=== PATIENT | male | born 1955 | race Caucasian/White ===

== ENCOUNTER 2022-01-07 08:45 | Outpatient (REF) | payer MEDICARE, SELFPAY ==
[2022-01-07 09:40] LABS: MANUAL DIFF FLAG NO
[2022-01-07 10:27] LABS: Basophils Absolute Auto 0.1 X10*3/uL (0.0-0.2); Basophils Percent Auto 0.6 % (0-2); Eosinophils Absolute Auto 0.3 X10*3/uL (0.0-0.4); Hematocrit 41.7 % (42.0-52.0); Hemoglobin 13.7 g/dl (14.0-18.0); Imm Gran Abs Auto 0.02 X10*3/uL (0.00-0.03); Imm Gran Pct Auto 0.2 % (0.0-0.4); Lymphocytes Absolute Auto 2.4 X10*3/uL (1.2-4.9); Lymphocytes Percent Auto 25.6 % (20-40); Mean Corpuscular HGB Conc 32.9 g/dl (31.0-36.0); Mean Corpuscular Hemoglobin 32.4 pg (27.0-33.0); Mean Corpuscular Volume 98.6 fL (80.0-98.0); Mean Platelet Volume 12.5 fL (9.4-12.4); Monocytes Absolute Auto 0.6 X10*3/uL (0.1-1.2); Monocytes Percent Auto 6.3 % (2-11); Neutrophils Absolute Auto 6.1 x10*3/uL (2.0-8.3); Neutrophils Percent Auto 64.3 % (45-73); Platelet Count 190 X10*3/uL (160-400); Red Blood Count 4.23 X10*6/uL (4.60-5.80); Red Cell Distribution Width 14.5 % (11.0-16.0); White Blood Count 9.4 X10*3/uL (4.8-10.8)
[2022-01-07 11:15] LABS: Alanine Aminotransferase 9 U/L (0-40); Albumin Level 3.9 g/dL (3.5-5.0); Alkaline Phosphatase 102 U/L (39-117); Anion Gap 12 (12-20); Aspartate Amino Transferase 15 U/L (5-37); Bilirubin Total 0.3 mg/dL (0.0-1.0); Blood Urea Nitrogen 8 mg/dL (9-16); Calcium 10.2 mg/dL (8.4-10.2); Carbon Dioxide 27 mmol/L (22-29); Chloride 106 mmol/L (96-108); Cholesterol 153 mg/dL; Estimated Glomerular Filt Rate > 60; Free T4 (Free Thyroxine) 0.97 ng/dL (0.71-1.85); Glucose Fasting 102 mg/dL (60-99); HDL Cholesterol 35 mg/dL; LDL Cholesterol Calculated 97 mg/dl; Potassium 4.2 mmol/L (3.3-5.1); Prostate Specific Antigen 0.22 ng/mL (<0.05-4.0); Sodium 141 mmol/L (135-145); Total Protein 7.1 g/dL (6.5-8.0); Triglycerides 109 mg/dL
== END 2022-01-07 08:46 | disposition home or self-care (01) ==
LOC: HO.LAB 08:45
PROVIDERS: PCP Family Medicine; Visit Provider Family Medicine
DX: Z12.5 Encounter for screening for malignant neoplasm of prostate (principal); R00.0 Tachycardia, unspecified; I10 Essential (primary) hypertension; R35.1 Nocturia
CPT/HCPCS: 36415; 80053; 80061; 84153; 84439; 85025

== ENCOUNTER 2022-02-11 13:04 | Inpatient (IN) | payer MEDICARE, MEDICAID, SELFPAY ==
--- NOTE | 2022-02-11 | ECG_ITS ---
Test Reason : SEIZURE Blood Pressure : / mmHG Vent. Rate : 120 BPM Atrial Rate : 120 BPM P-R Int : 142 ms QRS Dur : 070 ms QT Int : 330 ms P-R-T Axes : 078 -22 066 degrees QTc Int : 466 ms Sinus tachycardia Possible Left atrial enlargement Possible Anterior infarct (cited on or before 02-APR-2019) Abnormal ECG When compared with ECG of 02-APR-2019 02:31, Premature supraventricular complexes are no longer Present Left anterior fascicular block is no longer Present Questionable change in initial forces of Anterior leads Referred By: Generic ED Physician Electronically Signed By:Serjio Rogers
--- NOTE | 2022-02-11 | EEG_ITS ---
This is a 16-channel EEG with an EKG lead. The patient is reported awake and drowsy during the tracing. Background EEG rhythm is mostly low to medium amplitude, mixed theta, beta with no obvious asymmetry or paroxysmal tendency. Photic stimulation does not produce any significant abnormality. Hyperventilation is not performed. Cardiac lead does not reveal any significant abnormality other than sinus bradycardia with a rate of about 60 per minute. No sharp wave spikes or paroxysmal tendency noted. IMPRESSION: Generalized slowing with no evidence of seizure disorder. MD THOR Cisneros/LILIA / [id number]
--- NOTE | ~2022-02-11 | CT_ITS ---
EXAMINATION: CT HEAD WITHOUT CONTRAST CLINICAL INFORMATION: Seizure. COMPARISON: CT head dated from 04/17/2018. TECHNIQUE: Contiguous axial imaging was performed from the skull base to vertex without intravenous administration of contrast. This CT examination was performed using dose optimization techniques as appropriate, variously including the following: *Automated exposure control *Adjustment of mA and/or kV according to patient size (this includes techniques or standardized protocols for targeted exams where dose is matched to indication/reason for exam; i.e. extremities or head) *Use of iterative reconstruction technique DLP: 669 mGy-cm FINDINGS: Redemonstration of a large area of encephalomalacia and gliosis in the right frontal lobe, and additional smaller areas of encephalomalacia in the left inferior frontal lobe and left anterior temporal lobe. There is no evidence of acute intracranial hemorrhage or edematous territorial infarction. Scattered hypoattenuation in the periventricular and deep white matter are consistent with severe microangiopathy. Chronic bilateral lacunar infarcts. Proportional prominence of the ventricles and sulcal spaces. No evidence for obstructive hydrocephalus. No abnormal mass effect or midline shift. No extra-axial fluid collections. Partial opacification of the maxillary sinuses, left sphenoidal sinus and several ethmoid air cells. The mastoids and middle ear cavities are clear. Numerous periapical lucencies. Similar thickening and heterogeneity of the bifrontal skull, more notable on the right side (7:131). CT/CT head/brain wo con IMPRESSION: Multifocal areas of encephalomalacia and gliosis, largest in the right frontal lobe, likely sequela of a prior trauma and unchanged since 2018. No acute intracranial hemorrhage or edematous territorial infarction. Background of extensive microangiopathy and generalized cerebral volume loss. Paranasal sinus disease. Numerous periapical lucencies, possibly abscesses. Recommend dental referral.
--- NOTE | ~2022-02-11 | XR_ITS ---
EXAMINATION: XR CHEST CLINICAL INFORMATION: Seizure COMPARISON: Previous x-ray most recent March 2018 TECHNIQUE: Frontal view of the chest was obtained. FINDINGS: The cardiac and mediastinal contours are stable. The lungs are clear. There is no pleural effusion or pneumothorax. There are old right-sided rib fractures. There are degenerative changes of the spine. XR/XR chest 1V IMPRESSION: No evidence for acute disease in the chest.
[2022-02-11 13:15] VITALS: BP 102/67; PULSE 125; RESP 20; O2SAT 92; BMI 16.1
[2022-02-11 13:39] LABS: MANUAL DIFF FLAG NO
[2022-02-11 13:43] LABS: Basophils Absolute Auto 0.1 X10*3/uL (0.0-0.2); Basophils Percent Auto 0.5 % (0-2); Eosinophils Absolute Auto 0.3 X10*3/uL (0.0-0.4); Eosinophils Percent Auto 2.1 % (0-4); Hematocrit 46.4 % (42.0-52.0); Hemoglobin 14.5 g/dl (14.0-18.0); Imm Gran Abs Auto 0.04 X10*3/uL (0.00-0.03); Imm Gran Pct Auto 0.3 % (0.0-0.4); Lymphocytes Absolute Auto 2.8 X10*3/uL (1.2-4.9); Lymphocytes Percent Auto 23.9 % (20-40); Mean Corpuscular HGB Conc 31.3 g/dl (31.0-36.0); Mean Corpuscular Hemoglobin 32.1 pg (27.0-33.0); Mean Corpuscular Volume 102.7 fL (80.0-98.0); Mean Platelet Volume 13.3 fL (9.4-12.4); Monocytes Absolute Auto 0.7 X10*3/uL (0.1-1.2); Neutrophils Percent Auto 67.2 % (45-73); Platelet Count 148 X10*3/uL (160-400); Red Blood Count 4.52 X10*6/uL (4.60-5.80); White Blood Count 11.9 X10*3/uL (4.8-10.8)
[2022-02-11 13:53] LABS: Ethanol < 10 mg/dL
[2022-02-11 13:59] LABS: Blood Urea Nitrogen 11 mg/dL (9-16); Calcium 10.4 mg/dL (8.4-10.2); Creatinine Clr Calc Pharmacy 42.9; Estimated Glomerular Filt Rate 55; Glucose Random 133 mg/dL (60-115)
--- NOTE | 2022-02-11 14:07 | ED.SEIZURE ---
HPI - Seizure General Chief Complaint: Seizure Stated Complaint: SZ, POST ICTAL @ THIS TIME PER EMS Time Seen by Provider: 02/11/22 13:59 Source: EMS Mode of arrival: EMS Limitations: altered mental status History of Present Illness HPI Narrative: 66-year-old male status post seizure at home. Patient is known alcoholic but her roommate has not been drinking for the past year patient has not been seen here since September of 2020. Patient is unable to give any history as he got 5 of Versed by EMS. From unable to get any history from the patient only that EMS state that the patient seized in front of them patient is very unkempt has very poor order Seizure History: Yes Place: Home Related Data Allergies Allergy/AdvReac Type Severity Reaction Status Date / Time No Known Allergies Allergy Unverified 06/06/20 15:22 [No Known Allergies*] Review of Systems Review of Systems: Yes Unobtainable due to mental status PMFSH Social History Social History Advance Directives: No Advance Directives Information Provided: No Physical Exam Vital Signs: Vital Signs: Last Vital Signs Pulse 125 H 02/11/22 13:15 Resp 20 02/11/22 13:15 BP 102/67 02/11/22 13:15 Pulse Ox 92 02/11/22 13:15 BMI result Body Mass Index 16.1 Neurological exam: CN II- XII tested. Patient is somnolent. Patient has no dysphagia or dysarthia, denies good vision in all four vision zhou no nystagmus on exam, good strength to upper and lower extremities with normal reflexes to brachioradialis, wrist, patella and achilles. Negative romberg, good finger to nose and heel to dale. General: Well-appearing well-nourished in no signs of distress HEENT: Normocephalic atraumatic Neck: No signs of JVD, no masses no tenderness or lymphadenopathy Cardiovascular: Regular rate and rhythm Respiratory: Clear to auscultation bilaterally Abdomen: Soft nontender no masses Extremities: Normal pedal pulses no signs of edema Skin: Dry warm no rashes Back: No tenderness full ROM MDM - Seizure MDM Narrative Medical decision making narrative: Concern for seizure give patient over for CT head and ensure the patient had his head and getting history from the patient I will check labs and reassess patient is noted to have low bicarb likely related to the seizure. 1545 Patient is now awake admits to drinking heavily recently and does want help. He likely had a alcohol withdrawal seizure. I will consult the assistant women's tennis coach. 1631 patient is in the room eating EKG leads and eating blanket that he has when asked why he is eating the blanket the 5th at some length for patient is not obviously draw labs on this patient is safe to go home I will start the patient on phenobarbital I did call pharmacy and had a markedly through it I will the patient medicine. Lab Data Result diagrams: 02/11/22 13:31 02/11/22 13:31 Labs: Lab Results 02/11/22 02/11/22 02/11/22 Range/Units 13:31 13:31 13:31 WBC 11.9 H (4.8-10.8) X10*3/uL RBC 4.52 L (4.60-5.80) X10*6/uL Hgb 14.5 (14.0-18.0) g/dl Hct 46.4 (42.0-52.0) % MCV 102.7 H (80.0-98.0) fL MCH 32.1 (27.0-33.0) pg MCHC 31.3 (31.0-36.0) g/dl RDW 14.0 (11.0-16.0) % Plt Count 148 L (160-400) X10*3/uL MPV 13.3 H (9.4-12.4) fL Immature Gran % (Auto) 0.3 (0.0-0.4) % Neut % (Auto) 67.2 (45-73) % Lymph % (Auto) 23.9 (20-40) % [place] % (Auto) 6.0 (2-11) % Eos % (Auto) 2.1 (0-4) % Baso % (Auto) 0.5 (0-2) % Lymph # (Auto) 2.8 (1.2-4.9) X10*3/uL [place] # (Auto) 0.7 (0.1-1.2) X10*3/uL Eos # (Auto) 0.3 (0.0-0.4) X10*3/uL Baso # (Auto) 0.1 (0.0-0.2) X10*3/uL Abs Immat Gran (auto) 0.04 H (0.00-0.03) X10*3/uL Absolute Neuts (auto) 8.0 (2.0-8.3) x10*3/uL Absolute Nucleated RBC 0.000 (0.0-0.012) X10*3/uL Nucleated RBC % (auto) 0.0 (0.0-0.2) /100WBC Sodium 141 (135-145) mmol/L Potassium 4.2 (3.3-5.1) mmol/L Chloride 105 (96-108) mmol/L Carbon Dioxide 8 L* D (22-29) mmol/L Anion Gap 32 H (12-20) BUN 11 (9-16) mg/dL Creatinine 1.31 (0.5-1.4) mg/dL Estim Creat Clear Calc 42.9 Estimated GFR 55 Random Glucose 133 H (60-115) mg/dL Calcium 10.4 H (8.4-10.2) mg/dL Total Bilirubin 0.3 (0.0-1.0) mg/dL Direct Bilirubin < 0.2 (0.0-0.5) mg/dL AST 15 (5-37) U/L ALT 10 (0-40) U/L Alkaline Phosphatase 105 (39-117) U/L Total Protein 7.6 (6.5-8.0) g/dL Albumin 4.1 (3.5-5.0) g/dL Lipase 23 (8-78) U/L Ethyl Alcohol < 10 mg/dL COVID-19 ([facility]) (Negative) COVID-19 Clin Com 02/11/22 Range/Units 15:04 WBC (4.8-10.8) X10*3/uL RBC (4.60-5.80) X10*6/uL Hgb (14.0-18.0) g/dl Hct (42.0-52.0) % MCV (80.0-98.0) fL MCH (27.0-33.0) pg MCHC (31.0-36.0) g/dl RDW (11.0-16.0) % Plt Count (160-400) X10*3/uL MPV (9.4-12.4) fL Immature Gran % (Auto) (0.0-0.4) % Neut % (Auto) (45-73) % Lymph % (Auto) (20-40) % [place] % (Auto) (2-11) % Eos % (Auto) (0-4) % Baso % (Auto) (0-2) % Lymph # (Auto) (1.2-4.9) X10*3/uL [place] # (Auto) (0.1-1.2) X10*3/uL Eos # (Auto) (0.0-0.4) X10*3/uL Baso # (Auto) (0.0-0.2) X10*3/uL Abs Immat Gran (auto) (0.00-0.03) X10*3/uL Absolute Neuts (auto) (2.0-8.3) x10*3/uL Absolute Nucleated RBC (0.0-0.012) X10*3/uL Nucleated RBC % (auto) (0.0-0.2) /100WBC Sodium (135-145) mmol/L Potassium (3.3-5.1) mmol/L Chloride (96-108) mmol/L Carbon Dioxide (22-29) mmol/L Anion Gap (12-20) BUN (9-16) mg/dL Creatinine (0.5-1.4) mg/dL Estim Creat Clear Calc Estimated GFR Random Glucose (60-115) mg/dL Calcium (8.4-10.2) mg/dL Total Bilirubin (0.0-1.0) mg/dL Direct Bilirubin (0.0-0.5) mg/dL AST (5-37) U/L ALT (0-40) U/L Alkaline Phosphatase (39-117) U/L Total Protein (6.5-8.0) g/dL Albumin (3.5-5.0) g/dL Lipase (8-78) U/L Ethyl Alcohol mg/dL COVID-19 ([facility]) Negative (Negative) COVID-19 Clin Com See Note Discharge Plan Discharge Clinical Impression: Alcohol withdrawal, Alcohol withdrawal delirium, Alcohol withdrawal seizure Patient Disposition: Admitted As Inpatient
[2022-02-11 14:10] LABS: Anion Gap 32 (12-20); Carbon Dioxide 8 mmol/L (22-29); Chloride 105 mmol/L (96-108); Potassium 4.2 mmol/L (3.3-5.1); Sodium 141 mmol/L (135-145)
[2022-02-11] MEDS: 0.9 % Sodium Chloride 1,000 ML 999 ML IV (14:20)
[2022-02-11 14:34] LABS: Alanine Aminotransferase 10 U/L (0-40); Albumin Level 4.1 g/dL (3.5-5.0); Alkaline Phosphatase 105 U/L (39-117); Aspartate Amino Transferase 15 U/L (5-37); Bilirubin Direct < 0.2 mg/dL (0.0-0.5); Bilirubin Total 0.3 mg/dL (0.0-1.0); Lipase 23 U/L (8-78); Total Protein 7.6 g/dL (6.5-8.0)
--- NOTE | 2022-02-11 15:11 | PC.NURSE ---
call brother colin @ [phone]
[2022-02-11 15:48] LABS: COVID-19 Test Negative (Negative); IDNOW Serial# 55D5AD1C
--- NOTE | 2022-02-11 16:04 | PC.NURSE ---
patient more awake at this time, but confused and attempting to eat EKG leads. patient provided food and beverage at this time. easily distracted by objects in room, playing with blankets, seizure pads, belt buckle. when asked what patient is doing, patient states : i dont know
[2022-02-11 16:31] VITALS: BP 118/76; PULSE 115; RESP 20; TEMP 37.1; O2SAT 98
--- NOTE | 2022-02-11 16:42 | ED_ITS ---
HPI - Seizure General Chief Complaint: Seizure Stated Complaint: SZ, POST ICTAL @ THIS TIME PER EMS Time Seen by Provider: 02/11/22 13:59 Source: EMS Mode of arrival: EMS Limitations: altered mental status History of Present Illness Seizure History: Yes Place: Home Related Data Allergies Allergy/AdvReac Type Severity Reaction Status Date / Time No Known Allergies Allergy Unverified 06/06/20 15:22 [No Known Allergies*] [facility] Social History Social History Advance Directives: No Advance Directives Information Provided: No Physical Exam Vital Signs: Vital Signs: Last Vital Signs Temp 98.8 F 02/11/22 16:31 Pulse 115 H 02/11/22 16:31 Resp 20 02/11/22 16:31 BP 118/76 02/11/22 16:31 Pulse Ox 98 02/11/22 16:31 BMI result Body Mass Index 16.1 MDM - Seizure MDM Narrative Medical decision making narrative: Patient with seizure and alcohol withdrawal likely but unable to give us any history. Patient did wake up and admits to drinking heavily recently. He then started have very strange behavior eating EKG leads and his blanket he stated that's what blankets are for. I will give the patient phenobarbitol. I spoke with the hospitalist who wanted the patient to recieve phenobarbitol for the low barcarb on arrival which I will give. Lab Data Result diagrams: 02/11/22 13:31 02/11/22 13:31 Labs: Lab Results 02/11/22 02/11/22 02/11/22 Range/Units 13:31 13:31 13:31 WBC 11.9 H (4.8-10.8) X10*3/uL RBC 4.52 L (4.60-5.80) X10*6/uL Hgb 14.5 (14.0-18.0) g/dl Hct 46.4 (42.0-52.0) % MCV 102.7 H (80.0-98.0) fL MCH 32.1 (27.0-33.0) pg MCHC 31.3 (31.0-36.0) g/dl RDW 14.0 (11.0-16.0) % Plt Count 148 L (160-400) X10*3/uL MPV 13.3 H (9.4-12.4) fL Immature Gran % (Auto) 0.3 (0.0-0.4) % Neut % (Auto) 67.2 (45-73) % Lymph % (Auto) 23.9 (20-40) % [place] % (Auto) 6.0 (2-11) % Eos % (Auto) 2.1 (0-4) % Baso % (Auto) 0.5 (0-2) % Lymph # (Auto) 2.8 (1.2-4.9) X10*3/uL [place] # (Auto) 0.7 (0.1-1.2) X10*3/uL Eos # (Auto) 0.3 (0.0-0.4) X10*3/uL Baso # (Auto) 0.1 (0.0-0.2) X10*3/uL Abs Immat Gran (auto) 0.04 H (0.00-0.03) X10*3/uL Absolute Neuts (auto) 8.0 (2.0-8.3) x10*3/uL Absolute Nucleated RBC 0.000 (0.0-0.012) X10*3/uL Nucleated RBC % (auto) 0.0 (0.0-0.2) /100WBC Sodium 141 (135-145) mmol/L Potassium 4.2 (3.3-5.1) mmol/L Chloride 105 (96-108) mmol/L Carbon Dioxide 8 L* D (22-29) mmol/L Anion Gap 32 H (12-20) BUN 11 (9-16) mg/dL Creatinine 1.31 (0.5-1.4) mg/dL Estim Creat Clear Calc 42.9 Estimated GFR 55 Random Glucose 133 H (60-115) mg/dL Calcium 10.4 H (8.4-10.2) mg/dL Total Bilirubin 0.3 (0.0-1.0) mg/dL Direct Bilirubin < 0.2 (0.0-0.5) mg/dL AST 15 (5-37) U/L ALT 10 (0-40) U/L Alkaline Phosphatase 105 (39-117) U/L Total Protein 7.6 (6.5-8.0) g/dL Albumin 4.1 (3.5-5.0) g/dL Lipase 23 (8-78) U/L Ethyl Alcohol < 10 mg/dL COVID-19 ([facility]) (Negative) COVID-19 Clin Com 02/11/22 Range/Units 15:04 WBC (4.8-10.8) X10*3/uL RBC (4.60-5.80) X10*6/uL Hgb (14.0-18.0) g/dl Hct (42.0-52.0) % MCV (80.0-98.0) fL MCH (27.0-33.0) pg MCHC (31.0-36.0) g/dl RDW (11.0-16.0) % Plt Count (160-400) X10*3/uL MPV (9.4-12.4) fL Immature Gran % (Auto) (0.0-0.4) % Neut % (Auto) (45-73) % Lymph % (Auto) (20-40) % [place] % (Auto) (2-11) % Eos % (Auto) (0-4) % Baso % (Auto) (0-2) % Lymph # (Auto) (1.2-4.9) X10*3/uL [place] # (Auto) (0.1-1.2) X10*3/uL Eos # (Auto) (0.0-0.4) X10*3/uL Baso # (Auto) (0.0-0.2) X10*3/uL Abs Immat Gran (auto) (0.00-0.03) X10*3/uL Absolute Neuts (auto) (2.0-8.3) x10*3/uL Absolute Nucleated RBC (0.0-0.012) X10*3/uL Nucleated RBC % (auto) (0.0-0.2) /100WBC Sodium (135-145) mmol/L Potassium (3.3-5.1) mmol/L Chloride (96-108) mmol/L Carbon Dioxide (22-29) mmol/L Anion Gap (12-20) BUN (9-16) mg/dL Creatinine (0.5-1.4) mg/dL Estim Creat Clear Calc Estimated GFR Random Glucose (60-115) mg/dL Calcium (8.4-10.2) mg/dL Total Bilirubin (0.0-1.0) mg/dL Direct Bilirubin (0.0-0.5) mg/dL AST (5-37) U/L ALT (0-40) U/L Alkaline Phosphatase (39-117) U/L Total Protein (6.5-8.0) g/dL Albumin (3.5-5.0) g/dL Lipase (8-78) U/L Ethyl Alcohol mg/dL COVID-19 ([facility]) Negative (Negative) COVID-19 Clin Com See Note Critical Care Time Critical Care Time Critical Care Time: Yes Total Critical Care Time: 35 Attestation: Alcohol withdrawal seizure leading to alcohol delirium patient had to be started on phenobarbital consult with pharmacy as well as hospitalist. Discharge Plan Discharge Clinical Impression: Alcohol withdrawal, Alcohol withdrawal delirium, Alcohol withdrawal seizure Patient Disposition: Admitted As Inpatient
[2022-02-11] MEDS: Sodium Bicarbonate 8.4% 50 MEQ/50 ML SYRINGE IVPUSH (16:50)
[2022-02-11 17:14] LABS: Appearance Urine CLEAR; Color Urine YELLOW; Glucose Urine UA NEG (NEG); Leukocyte Esterase Urine NEG (NEG); Nitrite Urine NEG (NEG); Urine Blood NEG (NEG); Urine Ketones NEG (NEG); Urine Protein NEG (NEG-TRACE)
[2022-02-11 17:22] LABS: Acetone, serum QL Negative (Negative)
[2022-02-11 17:25] LABS: ABG Base Excess 1.1 mmol/L; ABG HCO3 23 mmol/L (22-26); ABG pCO2 32 mmHg (32-45); ABG pH 7.47 (7.35-7.45); ABG pO2 86 mmHg (83-108)
[2022-02-11 17:25] LABS: ABG Refer to POC result
[2022-02-11 17:26] LABS: Amphetamine Screen Urine Not Detected (Not Detect); Barbiturates, Urine Not Detected (Not Detect); Benzodiazepines Screen Urine POSITIVE (Not Detect); Cannabinoid Screen Urine POSITIVE (Not Detect); Cocaine Screen Urine Not Detected (Not Detect); Fentanyl, urine Not Detected (Not Detect); Opiate Screen Urine Not Detected (Not Detect); Phencyclidine Screen Urine Not Detected (Not Detect)
[2022-02-11] MEDS: PHENobarbitaL 200 MG, PHENobarbitaL 30 MG 230 MG PO (17:47)
--- NOTE | 2022-02-11 18:08 | P.HPHOSP_ITS ---
History of Present Illness Date of Service: 02/11/22 Chief Complaint: Seizure A 66 years old male with PMH of hold head injury, GERD and BPH who presents to the hospital after having a witnessed seizure at home. the patient brother reported that he here denies and he went to see his brother having twitching movement at home with altered mentation. He called EMS who so the patient and had another episode of seizure while in route. Received Versed by EMS team as he presented to the hospital. He did not have any other episodes during time in the emergency. The patient was confused but then became more alert leg reporting that he did not drink alcohol in years but confabulated a story about the reason he is in the hospital because of stomach pain that he called EMS for. in the emergency he was found to have metabolic acidosis. CT scan showed an evidence of chronic changes suggestive of thromboembolic accidents and an old head injury. Admitted for further evaluation and treatment. Review of Systems Review of Systems: No fever, chills but reports generalized weakness No chest pain, palpitation No shortness of breath or coughing No abdominal pain, nausea or vomiting No urinary symptoms denies rash or wounds PMFSH Social History Advance Directives: No Advance Directives Information Provided: No Meds Allergies Allergy/AdvReac Type Severity Reaction Status Date / Time No Known Allergies Allergy Unverified 06/06/20 15:22 [No Known Allergies*] Active Medications: Current Medications Acetaminophen (Acetaminophen 325 Mg Tablet) 650 mg PO Q6H PRN PRN Reason: Pain, Mild (Pain Scale 1-3) Heparin Sodium (Porcine) (Heparin Sodium,Porcine 5,000 Unit/Ml Vial) 5,000 unit SUBCUT Q12H DANIEL Levetiracetam (Keppra) 500 mg in 100 mls @ 400 mls/hr IV Q12H DANIEL Lactated Ringer's (Lr) 1,000 mls @ 80 mls/hr IVCONT .[id number] DANIEL Ondansetron HCl (Ondansetron Hcl 4 Mg/2 Ml Vial) 4 mg IVPUSH Q8H PRN PRN Reason: Nausea and Vomiting Pharmacy Consult (Consult Rx Perform Med Rec) 1 each MISCELLANE ONCE PRN PRN Reason: Consult order Phenobarbital 100 mg/ (Phenobarbital 60 mg) 160 mg PO Q3H [facility]; Protocol Stop: 02/12/22 00:01 Phenobarbital (Phenobarbital 15 Mg Tablet) 45 mg PO BID [facility] Stop: 02/13/22 21:01 Phenobarbital (Phenobarbital 30 Mg Tablet) 30 mg PO BID [facility] Stop: 02/15/22 21:01 Phenobarbital (Phenobarbital 30 Mg Tablet) 30 mg PO DAILY [facility] Stop: 02/17/22 09:01 Sodium Chloride (0.9 % Sodium Chloride Flush 3 Ml Syringe) 3 ml IVFLUSH QSHIFT [facility] Home Medications Medication Instructions Recorded Confirmed Last Taken Type doxazosin 8 mg tablet 1 tab PO DAILY 02/11/22 02/11/22 Unknown History omeprazole 40 mg capsule,delayed 1 cap PO DAILY 02/11/22 02/11/22 Unknown History release Physical Exam Vital Signs and Narrative: Vital Signs: Last Vital Signs Temp 98.8 F 02/11/22 16:31 Pulse 115 H 02/11/22 16:31 Resp 20 02/11/22 16:31 BP 118/76 02/11/22 16:31 Pulse Ox 98 02/11/22 16:31 BMI result Body Mass Index 16.1 Const: Other: Constitutional : Alert, interactive with stimulation, not in distress Neck : Normal inspection, Supple Cardiovascular : RRR, no JVP, systolic murmur, no lower extremity edema Respiratory : fair bilateral air entry, no crackles, wheezes or rhonchi Gastrointestinal: soft, lax, Normal bowel sounds, Non tender Skin : Warm, Dry, Neurological : Alert & oriented to self but not place or time, No focal deficit, Results Labs CBC and Chem 7: 02/11/22 13:31 02/11/22 13:31 Labs: Laboratory Results - last 24 hr 02/11/22 02/11/22 02/11/22 13:31 13:31 13:31 MCV 102.7 H MCH 32.1 MCHC 31.3 RDW 14.0 Plt Count 148 L MPV 13.3 H Immature Gran % (Auto) 0.3 Neut % (Auto) 67.2 Lymph % (Auto) 23.9 [place] % (Auto) 6.0 Eos % (Auto) 2.1 Baso % (Auto) 0.5 Lymph # (Auto) 2.8 [place] # (Auto) 0.7 Eos # (Auto) 0.3 Baso # (Auto) 0.1 Abs Immat Gran (auto) 0.04 H Absolute Neuts (auto) 8.0 Absolute Nucleated RBC 0.000 Nucleated RBC % (auto) 0.0 O2 Saturation ABG pH at Pt Temp ABG pCO2 at Pt Temp ABG pO2 at Pt Temp ABG HCO3 ABG Base Excess (Actual) Anion Gap 32 H Estim Creat Clear Calc 42.9 Estimated GFR 55 Random Glucose 133 H Calcium 10.4 H Total Bilirubin 0.3 Direct Bilirubin < 0.2 AST 15 ALT 10 Alkaline Phosphatase 105 Total Creatine Kinase 101 Total Protein 7.6 Albumin 4.1 Lipase 23 Urine Color Urine Appearance Urine pH Ur Specific [place] Urine Protein Urine Glucose (UA) Urine Ketones Urine Blood Urine Nitrite Ur Leukocyte Esterase Urine Opiates Screen Urine Fentanyl Screen Ur Barbiturates Screen Ur Phencyclidine Scrn Ur Amphetamines Screen U Benzodiazepines Scrn Urine Cocaine Screen U Marijuana (THC) Screen Ethyl Alcohol < 10 Acetone, Qual Negative COVID-19 ([facility]) COVID-[employer] 02/11/22 02/11/22 02/11/22 15:04 16:55 16:55 MCV MCH MCHC RDW Plt Count MPV Immature Gran % (Auto) Neut % (Auto) Lymph % (Auto) [place] % (Auto) Eos % (Auto) Baso % (Auto) Lymph # (Auto) [place] # (Auto) Eos # (Auto) Baso # (Auto) Abs Immat Gran (auto) Absolute Neuts (auto) Absolute Nucleated RBC Nucleated RBC % (auto) O2 Saturation ABG pH at Pt Temp ABG pCO2 at Pt Temp ABG pO2 at Pt Temp ABG HCO3 ABG Base Excess (Actual) Anion Gap Estim Creat Clear Calc Estimated GFR Random Glucose Calcium Total Bilirubin Direct Bilirubin AST ALT Alkaline Phosphatase Total Creatine Kinase Total Protein Albumin Lipase Urine Color YELLOW Urine Appearance CLEAR Urine pH 6.0 Ur Specific [place] 1.020 Urine Protein NEG Urine Glucose (UA) NEG Urine Ketones NEG Urine Blood NEG Urine Nitrite NEG Ur Leukocyte Esterase NEG Urine Opiates Screen Not Detected Urine Fentanyl Screen Not Detected Ur Barbiturates Screen Not Detected Ur Phencyclidine Scrn Not Detected Ur Amphetamines Screen Not Detected U Benzodiazepines Scrn POSITIVE H Urine Cocaine Screen Not Detected U Marijuana (THC) Screen POSITIVE H Ethyl Alcohol Acetone, Qual COVID-19 ([facility]) Negative COVID-[employer] See Note 02/11/22 17:16 MCV MCH MCHC RDW Plt Count MPV Immature Gran % (Auto) Neut % (Auto) Lymph % (Auto) [place] % (Auto) Eos % (Auto) Baso % (Auto) Lymph # (Auto) [place] # (Auto) Eos # (Auto) Baso # (Auto) Abs Immat Gran (auto) Absolute Neuts (auto) Absolute Nucleated RBC Nucleated RBC % (auto) O2 Saturation 97.0 ABG pH at Pt Temp 7.47 H ABG pCO2 at Pt Temp 32 ABG pO2 at Pt Temp 86 ABG HCO3 23 ABG Base Excess (Actual) 1.1 Anion Gap Estim Creat Clear Calc Estimated GFR Random Glucose Calcium Total Bilirubin Direct Bilirubin AST ALT Alkaline Phosphatase Total Creatine Kinase Total Protein Albumin Lipase Urine Color Urine Appearance Urine pH Ur Specific [place] Urine Protein Urine Glucose (UA) Urine Ketones Urine Blood Urine Nitrite Ur Leukocyte Esterase Urine Opiates Screen Urine Fentanyl Screen Ur Barbiturates Screen Ur Phencyclidine Scrn Ur Amphetamines Screen U Benzodiazepines Scrn Urine Cocaine Screen U Marijuana (THC) Screen Ethyl Alcohol Acetone, Qual COVID-19 ([facility]) COVID-19 Clin Com Imaging Radiologist's Impressions: Impressions Chest X-Ray 02/11/22 14:45 IMPRESSION: No evidence for acute disease in the chest. Head CT 02/11/22 14:54 IMPRESSION: Multifocal areas of encephalomalacia and gliosis, largest in the right frontal lobe, likely sequela of a prior trauma and unchanged since 2018. No acute intracranial hemorrhage or edematous territorial infarction. Background of extensive microangiopathy and generalized cerebral volume loss. Paranasal sinus disease. Numerous periapical lucencies, possibly abscesses. Recommend dental referral. Assessment and Plan (1) New onset seizure: Status: Acute (2) High anion gap metabolic acidosis: Status: Acute Plan A 66 years old male with PMH of hold head injury, GERD and BPH who presents to the hospital after having a witnessed seizure at home. new onset seizure No alcohol intake for almost 5 years now Seems to be secondary to chronic thromboembolic disease a of the brain CT scan as reported Load with Keppra thing continue 5 mg b.i.d. Get EEG Get Neurology evaluation start insulin hydration Seizure precautions High anion gap metabolic acidosis Likely result of the seizure itself Received sodium bicarbonate in the emergency ABG showed alkalotic pH after the bicarbonate Infusion Monitor BMP DVT PPX Heparin The patient will need to overnight hospital stay for further evaluation of new onset seizure and correcting his acute kidney injury to prevent decompensation into renal failure Quality Stroke Does the patient have a stroke diagnosis?: No VTE Prior VTE?: No VTE Risk Level:: Medical - moderate - high VTE Device Contraindication: Treatment Not Indicated VTE Drug Contraindication: N/A - Med Ordered
--- NOTE | 2022-02-11 18:08 | PHA.MEDREC ---
Pharmacy Consult ? Medication Reconciliation Pharmacy has completed the medication reconciliation. Pt unable to recall med list, list obtained from [facility]
[2022-02-11] MEDS: levETIRAcetam in NaCl (iso-os) 1,000 MG/100 ML PIGGYBACK 400 MG IV (18:30)
[2022-02-11] MEDS: Heparin Sodium,Porcine 5,000 UNIT/ML VIAL 5000 UNIT SUBCUT (18:30)
[2022-02-11 18:53] LABS: Lactic Acid 2.8 mmol/L (0.5-2.0)
[2022-02-11 19:18] LABS: Anion Gap 13 (12-20); Blood Urea Nitrogen 10 mg/dL (9-16); Calcium 9.4 mg/dL (8.4-10.2); Carbon Dioxide 27 mmol/L (22-29); Chloride 106 mmol/L (96-108); Creatinine Clr Calc Pharmacy 56.2; Estimated Glomerular Filt Rate > 60; Glucose Random 92 mg/dL (60-115); Potassium 3.8 mmol/L (3.3-5.1); Sodium 142 mmol/L (135-145)
[2022-02-11 20:30] LABS: Reflex Lactate? Lactic Acid Added
[2022-02-11] MEDS: PHENobarbitaL 100 MG, PHENobarbitaL 60 MG 160 MG PO (20:34)
[2022-02-11] MEDS: Lactated Ringers 1,000 ML 80 ML IVCONT (20:44)
[2022-02-11 21:12] LABS: ~Lactic Acid-LAB USE ONLY 1.6 mmol/L (0.5-2.0)
[2022-02-11 21:14] VITALS: BP 146/69; PULSE 95; RESP 16; TEMP 36.6; O2SAT 99
[2022-02-12] VITALS (7 sets, daily range): BP systolic 113–151; BP diastolic 43–70; PULSE 55–75; RESP 14–18; TEMP 36.2–36.8; O2SAT 95–98
[2022-02-12] MEDS: PHENobarbitaL 100 MG, PHENobarbitaL 60 MG 160 MG PO (01:51)
[2022-02-12] MEDS: Heparin Sodium,Porcine 5,000 UNIT/ML VIAL 5000 UNIT SUBCUT ×2 (06:38→17:21)
[2022-02-12] MEDS: Lactated Ringers 1,000 ML 80 ML IVCONT ×2 (06:39→19:00)
[2022-02-12 07:37] LABS: Hematocrit 40.4 % (42.0-52.0); Hemoglobin 13.5 g/dl (14.0-18.0); Mean Corpuscular HGB Conc 33.4 g/dl (31.0-36.0); Mean Corpuscular Hemoglobin 31.9 pg (27.0-33.0); Mean Corpuscular Volume 95.5 fL (80.0-98.0); Mean Platelet Volume 13.1 fL (9.4-12.4); Platelet Count 136 X10*3/uL (160-400); Red Blood Count 4.23 X10*6/uL (4.60-5.80); Red Cell Distribution Width 13.9 % (11.0-16.0); White Blood Count 12.7 X10*3/uL (4.8-10.8)
[2022-02-12 07:44] LABS: Anion Gap 11 (12-20); Blood Urea Nitrogen 9 mg/dL (9-16); Calcium 9.3 mg/dL (8.4-10.2); Carbon Dioxide 26 mmol/L (22-29); Chloride 105 mmol/L (96-108); Creatinine Clr Calc Pharmacy 68.5; Estimated Glomerular Filt Rate > 60; Glucose Random 73 mg/dL (60-115); Potassium 3.6 mmol/L (3.3-5.1); Sodium 138 mmol/L (135-145)
[2022-02-12] MEDS: levETIRAcetam in NaCl (iso-os) 500 MG/100 ML PIGGYBACK 400 MG IV ×2 (08:41→19:32)
[2022-02-12] MEDS: PHENobarbitaL 15 MG TABLET 45 MG PO ×2 (08:41→19:32)
[2022-02-12] MEDS: 0.9 % Sodium Chloride Flush 3 ML SYRINGE IVFLUSH (08:42)
--- NOTE | 2022-02-12 09:01 | MHC.CM.PN ---
Attempted to meet with patient in regards to discharge planning. Patient currently sleeping. No family present. Spoke with patient's HCP, Pastor Vero Mi via telephone at [phone]. Pastor Pham is patient's son. They have an estranged relationship. Patient lives with his brother and ambulates independently. Copy of HCP verified to be on file. Patient has received 2 Pfizer vaccines and 1 Moderna booster. IMM explained and sent via certified mail. Physical therapy eval is ordered and pending. Continue to monitor for d/c needs.
[2022-02-12 09:18] LABS: Glucose, Whole Blood 76 mg/dL (60-115)
--- NOTE | 2022-02-12 09:19 | PC.NURSE ---
pt sleepy, but easily arousable, respirations even and unlabored, pt alert and oriented, but at times will make statements that don't make any seance, pt denies pain, pt incontinent of urine, pt changed over, sinus on the monitor and vs s stable
--- NOTE | 2022-02-12 12:53 | PC.NURSE ---
Pt alert and oriented x4, calm and cooperative. Pt denies pain. No seizure activity now. IV in place infusing continuous fluids now without issues. Vitals stable. Seizure pads in place. Denies N/V. Denies headache.
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
--- NOTE | 2022-02-12 19:25 | PC.NURSE ---
PATIENT WAS INC OF URINE ,BED BATH GIVEN LINEN WAS CHANGE .
--- NOTE | 2022-02-12 19:26 | PC.NURSE ---
patient ate 100 % of meal ,drank 240 ml fluids ,patient need to be fed ,unable to fed self .
--- NOTE | 2022-02-13 05:16 | PC.NURSE ---
i assumed nursing care of Tre at 2300. Since that time he has been sleeping, wakes to verbal stimuli at which time he is alert and calm and cooperative. He has no complaints: no pain, respirations are non-labored, speech clear. He is taking PO fluids without difficulty and verbalizes an understanding that he is awaiting a bed assignment. Will continue to monitor.
[2022-02-13] MEDS: Heparin Sodium,Porcine 5,000 UNIT/ML VIAL 5000 UNIT SUBCUT (06:03)
[2022-02-13] MEDS: Omeprazole 40 MG CAPSULE.DR PO (06:03)
[2022-02-13] MEDS: levETIRAcetam in NaCl (iso-os) 500 MG/100 ML PIGGYBACK 400 MG IV (08:53)
[2022-02-13] MEDS: Lactated Ringers 1,000 ML 80 ML IVCONT (08:54)
[2022-02-13] MEDS: PHENobarbitaL 15 MG TABLET 45 MG PO (08:54)
--- NOTE | 2022-02-13 10:16 | MHC.CM.PN ---
Addendum entered by Evelyn Casas 02/13/22 15:16: CM RECEIVED A CALL FROM PTS SON, JOSE ROBERTO, WHO REPORTS SOMEONE CALLED HIM FROM THIS NUMBER. CM [PROVIDED UPDATE RE PTS STATUS AND INFORMED HIM THE PT WOULD GO HOME TODAY AND WAS DECLINING STR/[facility] JOSE ROBERTO REPORTS THAT IS TYPICAL BUT HE DOES NOT FEEL HE WOULD HAVE ANY INFLUENCE IF HE SPOKE TO THE PT HE SAYS HE WILL FOLLOW UP WITH PT TOMORROW Addendum entered by Evelyn Casas 02/13/22 11:15: PT WILL DC HOME TODAY WITH [facility] FOR HOME PT Original Note: CM MET WITH PT TO DISCUSS DC PLANNING. PT IS AWARE STR IS BEING RECOMMENDED AFTER REVIEWING OPTIONS, PT REPORTS HE IS NOT WILLING TO GO TO STR HE IS WILLING TO GO HOME WITH PT REFERRALS MADE
[2022-02-13 11:31] VITALS: BP 147/63; PULSE 67; RESP 18; TEMP 36.3; O2SAT 96
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
[2022-02-13 13:42] VITALS: BP 147/63; PULSE 67; O2SAT 96
--- NOTE | 2022-02-13 13:50 | W.MHC.F2F ---
Service Date Service Date: 02/13/22 Encounter Date of encounter: 02/13/22 Reasons for Services Signs and symptoms assessed: Impaired strength, decreased balance Reason for physical therapy: home safety and mobility, therapeutic exercises and gait/transfer training Overseeing Care: Jerrell Lo Homebound: Leaving the home is medically contraindicated at this time without the asist of a device and/or another person due th the listed conditions above and below. Reason homebound: unsteady gait / fall risk and poor balance / fall risk Certification: Based on the above findings, I certify that this patient is confined to the home and needs intermittent jail care, physical therapy and/or speech therapy, or continues to need occupational therapy. The patient is under my care, and I have initiated the establishment of the plan of care. The patient will be followed by a physician who will periodically review the plan of care.
== END 2022-02-13 16:10 | disposition home health service (06) | DRG 101 ==
LOC: HO.ED 16:34 → HO.EDOVER 18:19 → HO.S3 02-13 09:48
PROVIDERS: Admitting Provider Student in an Organized Health Care Education/Training Program; Emergency Provider Student in an Organized Health Care Education/Training Program; PCP Family Medicine; Visit Provider Physician Assistant Medical
DX: R56.9 Unspecified convulsions (principal); E87.2 Acidosis; K21.9 Gastro-esophageal reflux disease without esophagitis; F17.210 Nicotine dependence, cigarettes, uncomplicated; Z20.822 Contact with and (suspected) exposure to COVID-19; Z71.6 Tobacco abuse counseling; Z79.899 Other long term (current) drug therapy; Z87.820 Personal history of traumatic brain injury
CPT/HCPCS: 36415; 70450; 71045; 80048; 80076; 80307; 81003; 82009; 82077; 82550; 82803; 82947; 83605; 83690; 85025; 85027; 87635; 93005; 95816; 96361; 96374; 97162; 99285; 99291; J1953

== ENCOUNTER 2022-04-29 10:05 | Outpatient (REF) | payer MEDICARE, MEDICAID, SELFPAY ==
--- NOTE | ~2022-04-29 | XR_ITS ---
EXAMINATION: XR CHEST CLINICAL INFORMATION: Weight loss, COPD COMPARISON: 02/11/22 frontal view TECHNIQUE: 2 views of the chest were obtained. FINDINGS: There is rotation toward the left. The cardiac size is within normal limits. There is calcification of the aortic arch and there is tortuosity of the descending aorta. There may be some calcification in the region of the aortic valve and coronary calcification. Overall cardiac size alex and vasculature are within normal limits. There is no consolidation or suspicious mass. There is no pleural fluid or pneumothorax. There is increased thoracic kyphosis with [id number] volume loss in the midthoracic spine. There is osteopenia. There are likely some right-sided lower thoracic osteophytes. Bilateral carotid calcification. XR/XR chest 2V IMPRESSION: No pneumonia or edema. Large lung volumes. Extensive atherosclerosis with some volume loss in the spine
== END 2022-04-29 10:06 | disposition home or self-care (01) ==
LOC: HO.XRAY 10:05
PROVIDERS: PCP Family Medicine; Visit Provider Family Medicine
DX: R63.4 Abnormal weight loss (principal); J44.9 Chronic obstructive pulmonary disease, unspecified; Z72.0 Tobacco use
CPT/HCPCS: 71046

== ENCOUNTER 2022-06-15 11:08 | Outpatient (REF) | payer MEDICARE, MEDICAID, SELFPAY ==
--- NOTE | ~2022-06-15 | US_ITS ---
EXAMINATION: US EXTRACRANIAL CAROTID DUPLEX, BILATERAL CLINICAL INFORMATION: Bilateral carotid bruits COMPARISON: None TECHNIQUE: Real-time ultrasound and Doppler techniques (integrating B-mode 2-D vascular images, Doppler spectral analysis and color-flow Doppler imaging) were utilized to interrogate the extracranial carotid arteries, the vertebral arteries and proximal subclavian arteries bilaterally. The degree of stenosis is determined by criteria similar to NASCET. FINDINGS: Right Side: 1. There is moderate calcified atherosclerotic plaque seen in the bifurcation/proximal ICA region. 2. The common carotid artery PSV proximally is 133 cm/s and distally 144 cm/s. 3. The proximal internal carotid artery velocities are 225 cm/s systolic and 41 cm/s diastolic. 4. The proximal external carotid artery PSV is 294 cm/s. 5. The vertebral artery shows antegrade flow. 6. The subclavian artery waveforms are normal with elevated velocity measuring 288 cm/s. Left Side: 1. There is moderate calcified atherosclerotic plaque seen in the bifurcation/proximal ICA region. 2. The common carotid artery PSV proximally is 163 cm/s and distally 148 cm/s. 3. The proximal internal carotid artery velocities are 198 cm/s systolic and 34 cm/s diastolic. 4. The proximal external carotid artery PSV is 419 cm/s. 5. The vertebral artery shows antegrade flow. 6. The subclavian artery waveforms are normal with elevated velocity measuring 237 cm/s. US/US carotid duplex BI IMPRESSION: 1. RIGHT: Moderate, hemodynamically significant stenosis of the proximal right internal carotid artery corresponding to a 50-79% stenosis by velocity criteria. 2. LEFT: Moderate, hemodynamically significant stenosis of the proximal left internal carotid artery corresponding to a 50-79% stenosis by velocity criteria. 3. Elevated velocities are also seen within the bilateral external carotid and subclavian arteries. Antegrade flow seen in the bilateral vertebral arteries. Cannot exclude underlying stenoses.
== END 2022-06-15 11:09 | disposition home or self-care (01) ==
LOC: HO.US 11:08
PROVIDERS: Visit Provider Family Medicine
DX: I10 Essential (primary) hypertension (principal); R09.89 Other specified symptoms and signs involving the circulatory and respiratory systems
CPT/HCPCS: 93880

== ENCOUNTER 2022-06-18 11:21 | Outpatient (REF) | payer MEDICARE, SELFPAY ==
[2022-06-18 11:36] LABS: MANUAL DIFF FLAG NO
[2022-06-18 12:15] LABS: Basophils Absolute Auto 0.1 X10*3/uL (0.0-0.2); Basophils Percent Auto 0.8 % (0-2); Eosinophils Absolute Auto 0.2 X10*3/uL (0.0-0.4); Eosinophils Percent Auto 2.3 % (0-4); Hematocrit 42.9 % (42.0-52.0); Hemoglobin 13.8 g/dl (14.0-18.0); Imm Gran Abs Auto 0.02 X10*3/uL (0.00-0.03); Imm Gran Pct Auto 0.2 % (0.0-0.4); Lymphocytes Absolute Auto 3.3 X10*3/uL (1.2-4.9); Lymphocytes Percent Auto 33.9 % (20-40); Mean Corpuscular HGB Conc 32.2 g/dl (31.0-36.0); Mean Corpuscular Hemoglobin 31.7 pg (27.0-33.0); Mean Corpuscular Volume 98.6 fL (80.0-98.0); Mean Platelet Volume 12.3 fL (9.4-12.4); Monocytes Absolute Auto 0.8 X10*3/uL (0.1-1.2); Monocytes Percent Auto 8.7 % (2-11); Neutrophils Absolute Auto 5.2 x10*3/uL (2.0-8.3); Neutrophils Percent Auto 54.1 % (45-73); Platelet Count 201 X10*3/uL (160-400); Red Blood Count 4.35 X10*6/uL (4.60-5.80); Red Cell Distribution Width 14.4 % (11.0-16.0); White Blood Count 9.6 X10*3/uL (4.8-10.8)
[2022-06-18 12:55] LABS: Alanine Aminotransferase 9 U/L (0-40); Albumin Level 4.4 g/dL (3.5-5.0); Alkaline Phosphatase 105 U/L (39-117); Anion Gap 17 (12-20); Aspartate Amino Transferase 16 U/L (5-37); Bilirubin Total 0.3 mg/dL (0.0-1.0); Blood Urea Nitrogen 15 mg/dL (9-16); Calcium 10.4 mg/dL (8.4-10.2); Carbon Dioxide 26 mmol/L (22-29); Chloride 106 mmol/L (96-108); Estimated Glomerular Filt Rate > 60; Glucose Random 109 mg/dL (60-115); Potassium 5.5 mmol/L (3.3-5.1); Sodium 143 mmol/L (135-145); Total Protein 7.6 g/dL (6.5-8.0)
[2022-06-18 13:11] LABS: Free T4 (Free Thyroxine) 1.01 ng/dL (0.71-1.85)
== END 2022-06-18 11:22 | disposition home or self-care (01) ==
LOC: HO.LAB 11:21
PROVIDERS: PCP Family Medicine; Visit Provider Family Medicine
DX: R63.4 Abnormal weight loss (principal)
CPT/HCPCS: 36415; 80053; 84439; 85025

== ENCOUNTER 2022-10-20 09:25 | Outpatient (REF) | payer MEDICARE, MEDICAID, SELFPAY ==
--- NOTE | 2022-10-20 09:34 | ECG_ITS ---
Test Reason : preop, copd, htn Blood Pressure : / mmHG Vent. Rate : 060 BPM Atrial Rate : 060 BPM P-R Int : 148 ms QRS Dur : 076 ms QT Int : 416 ms P-R-T Axes : 073 -35 075 degrees QTc Int : 416 ms Normal sinus rhythm Possible Left atrial enlargement Left axis deviation Cannot rule out Anterior infarct (cited on or before 02-APR-2019) Abnormal ECG When compared with ECG of 11-FEB-2022 13:16, Vent. rate has decreased BY 60 BPM Referred By: Jerrell Lo Electronically Signed By:Serjio Rogers
[2022-10-20 09:49] LABS: MANUAL DIFF FLAG NO
[2022-10-20 10:29] LABS: Basophils Absolute Auto 0.1 X10*3/uL (0.0-0.2); Basophils Percent Auto 0.7 % (0-2); Eosinophils Absolute Auto 0.1 X10*3/uL (0.0-0.4); Eosinophils Percent Auto 1.6 % (0-4); Hematocrit 39.7 % (42.0-52.0); Hemoglobin 13.1 g/dl (14.0-18.0); Imm Gran Abs Auto 0.01 X10*3/uL (0.00-0.03); Imm Gran Pct Auto 0.1 % (0.0-0.4); Lymphocytes Absolute Auto 3.6 X10*3/uL (1.2-4.9); Lymphocytes Percent Auto 41.3 % (20-40); Mean Corpuscular Hemoglobin 31.4 pg (27.0-33.0); Mean Corpuscular Volume 95.2 fL (80.0-98.0); Mean Platelet Volume 11.7 fL (9.4-12.4); Monocytes Absolute Auto 0.7 X10*3/uL (0.1-1.2); Neutrophils Absolute Auto 4.2 x10*3/uL (2.0-8.3); Neutrophils Percent Auto 48.3 % (45-73); Platelet Count 225 X10*3/uL (160-400); Red Blood Count 4.17 X10*6/uL (4.60-5.80); Red Cell Distribution Width 13.3 % (11.0-16.0); White Blood Count 8.7 X10*3/uL (4.8-10.8)
[2022-10-20 11:13] LABS: Anion Gap 14 (12-20); Blood Urea Nitrogen 18 mg/dL (9-16); Carbon Dioxide 28 mmol/L (22-29); Chloride 103 mmol/L (96-108); Estimated Glomerular Filt Rate > 60; Sodium 141 mmol/L (135-145)
== END 2022-10-20 09:26 | disposition home or self-care (01) ==
LOC: HO.LAB 09:25
PROVIDERS: PCP Family Medicine; Visit Provider Family Medicine
DX: Z01.818 Encounter for other preprocedural examination (principal); I10 Essential (primary) hypertension; J43.9 Emphysema, unspecified
CPT/HCPCS: 36415; 80051; 82565; 84520; 85025; 93005

== ENCOUNTER 2023-04-05 12:09 | Outpatient (REF) | payer MEDICARE, MEDICAID, SELFPAY ==
[2023-04-05 13:38] LABS: Anion Gap 14 (12-20); Blood Urea Nitrogen 15 mg/dL (9-16); Calcium 10.5 mg/dL (8.4-10.2); Carbon Dioxide 28 mmol/L (22-29); Chloride 106 mmol/L (96-108); Estimated Glomerular Filt Rate > 60; Potassium 4.8 mmol/L (3.3-5.1); Sodium 143 mmol/L (135-145)
[2023-04-08 18:53] LABS: Levetiracetam Keppra 25.2 mcg/mL (6.0-46.0)
== END 2023-04-05 12:10 | disposition home or self-care (01) ==
LOC: HO.10HDL 12:09
PROVIDERS: Visit Provider Family Medicine
DX: I10 Essential (primary) hypertension (principal); E83.52 Hypercalcemia; G40.909 Epilepsy, unspecified, not intractable, without status epilepticus; Z79.899 Other long term (current) drug therapy
CPT/HCPCS: 36415; 80051; 80177; 82310; 82565; 84520

== ENCOUNTER 2023-06-22 10:15 | Outpatient (REF) | payer OTHER, MEDICAID, SELFPAY ==
--- NOTE | ~2023-06-22 | US_ITS ---
EXAMINATION: US EXTRACRANIAL CAROTID DUPLEX, BILATERAL CLINICAL INFORMATION: Carotid bruit, bilateral COMPARISON: Carotid duplex on 06/15/2022 TECHNIQUE: Real-time ultrasound and Doppler techniques (integrating B-mode 2-D vascular images, Doppler spectral analysis and color-flow Doppler imaging) were utilized to interrogate the extracranial carotid arteries, the vertebral arteries and proximal subclavian arteries bilaterally. The degree of stenosis is determined by criteria similar to NASCET. FINDINGS: Right Side: 1. There is moderate atherosclerotic plaque seen in the bifurcation/proximal ICA region. 2. The common carotid artery PSV proximally is 233 cm/s and distally 90 cm/s. 3. The proximal internal carotid artery velocities are 206 cm/s systolic and 25 cm/s diastolic. 4. The proximal external carotid artery PSV is 334 cm/s. 5. The vertebral artery shows antegrade flow. 6. The subclavian artery waveforms are normal. Left Side: 1. There is moderate atherosclerotic plaque seen in the bifurcation/proximal ICA region. 2. The common carotid artery PSV proximally is 119 cm/s and distally 200 cm/s. 3. The proximal internal carotid artery velocities are 199 cm/s systolic and 31 cm/s diastolic. 4. The proximal external carotid artery PSV is 211 cm/s. 5. The vertebral artery shows antegrade flow. 6. The subclavian artery waveforms are normal. US/US carotid duplex BI IMPRESSION: 1. RIGHT: Moderate, hemodynamically significant stenosis of the proximal right internal carotid artery corresponding to a 50-79% stenosis by velocity criteria. 2. LEFT: Moderate, hemodynamically significant stenosis of the proximal left internal carotid artery corresponding to a 50-79% stenosis by velocity criteria. 3. There is no change in the category severity of disease when compared to the previous study dated 06/15/2022. 4. Elevated velocities in the bilateral external carotid artery suggesting stenosis.
[2023-06-22 13:22] LABS: Calcium 10.5 mg/dL (8.4-10.2)
[2023-06-23 16:09] LABS: Calcium (PTHI) 10.1 mg/dL (8.6-10.3); PTHI 12 pg/mL (16-77)
== END 2023-06-22 10:16 | disposition home or self-care (01) ==
LOC: HO.US 10:15
PROVIDERS: PCP Family Medicine; Visit Provider Family Medicine
DX: R09.89 Other specified symptoms and signs involving the circulatory and respiratory systems (principal); E83.52 Hypercalcemia
CPT/HCPCS: 36415; 82310; 83970; 93880

== ENCOUNTER 2023-08-02 12:44 | Outpatient (REF) | payer OTHER, SELFPAY ==
[2023-08-02 13:05] LABS: MANUAL DIFF FLAG NO
[2023-08-02 14:46] LABS: Basophils Absolute Auto 0.1 X10*3/uL (0.0-0.2); Basophils Percent Auto 0.9 % (0-2); Eosinophils Absolute Auto 0.4 X10*3/uL (0.0-0.4); Eosinophils Percent Auto 3.1 % (0-4); Hematocrit 42.5 % (42.0-52.0); Hemoglobin 13.7 g/dl (14.0-18.0); Imm Gran Abs Auto 0.04 X10*3/uL (0.00-0.03); Imm Gran Pct Auto 0.3 % (0.0-0.4); Lymphocytes Absolute Auto 3.5 X10*3/uL (1.2-4.9); Lymphocytes Percent Auto 29.2 % (20-40); Mean Corpuscular HGB Conc 32.2 g/dl (31.0-36.0); Mean Corpuscular Hemoglobin 30.4 pg (27.0-33.0); Mean Corpuscular Volume 94.2 fL (80.0-98.0); Mean Platelet Volume 11.3 fL (9.4-12.4); Neutrophils Absolute Auto 6.9 x10*3/uL (2.0-8.3); Neutrophils Percent Auto 58.5 % (45-73); Platelet Count 236 X10*3/uL (160-400); Red Blood Count 4.51 X10*6/uL (4.60-5.80); Red Cell Distribution Width 13.5 % (11.0-16.0); White Blood Count 11.9 X10*3/uL (4.8-10.8)
[2023-08-02 15:26] LABS: Anion Gap 11 (12-20); Blood Urea Nitrogen 17 mg/dL (9-16); Carbon Dioxide 29 mmol/L (22-29); Chloride 105 mmol/L (96-108); Estimated Glomerular Filt Rate > 60; Magnesium 1.9 mg/dL (1.6-2.6); Potassium 3.9 mmol/L (3.3-5.1); Sodium 141 mmol/L (135-145)
== END 2023-08-02 12:45 | disposition home or self-care (01) ==
LOC: HO.LAB 12:44
PROVIDERS: PCP Family Medicine; Visit Provider Family Medicine
DX: R00.0 Tachycardia, unspecified (principal); I10 Essential (primary) hypertension
CPT/HCPCS: 36415; 80051; 82565; 83735; 84520; 85025

== ENCOUNTER 2024-02-02 10:58 | Outpatient (REF) | payer OTHER, SELFPAY ==
[2024-02-02 11:27] LABS: MANUAL DIFF FLAG NO
[2024-02-02 12:30] LABS: Basophils Absolute Auto 0.1 X10*3/uL (0.0-0.2); Basophils Percent Auto 1.3 % (0-2); Eosinophils Absolute Auto 0.4 X10*3/uL (0.0-0.4); Eosinophils Percent Auto 4.9 % (0-4); Hematocrit 39.7 % (42.0-52.0); Imm Gran Abs Auto 0.02 X10*3/uL (0.00-0.03); Imm Gran Pct Auto 0.2 % (0.0-0.4); Lymphocytes Absolute Auto 3.6 X10*3/uL (1.2-4.9); Lymphocytes Percent Auto 41.3 % (20-40); Mean Corpuscular HGB Conc 32.7 g/dl (31.0-36.0); Mean Corpuscular Hemoglobin 30.9 pg (27.0-33.0); Mean Corpuscular Volume 94.3 fL (80.0-98.0); Mean Platelet Volume 11.5 fL (9.4-12.4); Monocytes Absolute Auto 0.7 X10*3/uL (0.1-1.2); Monocytes Percent Auto 7.4 % (2-11); Neutrophils Absolute Auto 3.9 x10*3/uL (2.0-8.3); Neutrophils Percent Auto 44.9 % (45-73); Platelet Count 221 X10*3/uL (160-400); Red Blood Count 4.21 X10*6/uL (4.60-5.80); Red Cell Distribution Width 13.6 % (11.0-16.0); White Blood Count 8.7 X10*3/uL (4.8-10.8)
[2024-02-02 13:00] LABS: Alanine Aminotransferase 12 U/L (0-40); Alkaline Phosphatase 114 U/L (39-117); Anion Gap 12 (12-20); Aspartate Amino Transferase 16 U/L (5-37); Bilirubin Total 0.4 mg/dL (0.0-1.0); Blood Urea Nitrogen 12 mg/dL (9-16); Carbon Dioxide 27 mmol/L (22-29); Chloride 106 mmol/L (96-108); Estimated Glomerular Filt Rate > 60; Glucose Random 95 mg/dL (60-115); Potassium 4.1 mmol/L (3.3-5.1); Sodium 141 mmol/L (135-145); Total Protein 7.5 g/dL (6.5-8.0)
== END 2024-02-02 10:59 | disposition home or self-care (01) ==
LOC: HO.LAB 10:58
PROVIDERS: PCP Family Medicine; Visit Provider Family Medicine
DX: R53.83 Other fatigue (principal); I10 Essential (primary) hypertension
CPT/HCPCS: 36415; 80053; 85025

== ENCOUNTER 2024-07-26 11:44 | Outpatient (REF) | payer OTHER, SELFPAY ==
[2024-07-30 01:54] LABS: Levetiracetam Keppra 20.2 mcg/mL (6.0-46.0)
== END 2024-07-26 11:45 | disposition home or self-care (01) ==
LOC: HO.LAB 11:44
PROVIDERS: PCP Family Medicine; Visit Provider Family Medicine
DX: G40.909 Epilepsy, unspecified, not intractable, without status epilepticus (principal); Z79.899 Other long term (current) drug therapy
CPT/HCPCS: 36415; 80177

== ENCOUNTER 2024-10-27 11:22 | Outpatient (REF) | payer OTHER, SELFPAY ==
[2024-10-27 11:46] LABS: MANUAL DIFF FLAG NO
[2024-10-27 12:07] LABS: Basophils Absolute Auto 0.1 X10*3/uL (0.0-0.2); Basophils Percent Auto 1.3 % (0-2); Eosinophils Absolute Auto 0.5 X10*3/uL (0.0-0.4); Eosinophils Percent Auto 5.9 % (0-4); Imm Gran Abs Auto 0.03 X10*3/uL (0.00-0.03); Imm Gran Pct Auto 0.3 % (0.0-0.4); Lymphocytes Percent Auto 44.3 % (20-40); Mean Corpuscular HGB Conc 32.6 g/dl (31.0-36.0); Mean Corpuscular Hemoglobin 31.2 pg (27.0-33.0); Mean Corpuscular Volume 95.8 fL (80.0-98.0); Monocytes Absolute Auto 0.7 X10*3/uL (0.1-1.2); Monocytes Percent Auto 8.2 % (2-11); Neutrophils Absolute Auto 3.6 x10*3/uL (2.0-8.3); Platelet Count 214 X10*3/uL (160-400); Red Blood Count 4.49 X10*6/uL (4.60-5.80); Red Cell Distribution Width 13.4 % (11.0-16.0)
--- OUTSIDE RECORDS SUMMARY | 2024-10-27 12:23 | XMS_ITS ---
Author Organization [facility] Address [address] [place] [address] Care Team Providers Care Tank Riveter Name Role Phone Jerrell Lo MD Primary Care Provider Unavailab Agustin Carrero Unavailable [phone] REASON FOR VISIT cancel procedures Encounters Encounter Location Date Provider Diagnosis [facility] [address] [place] [address] 06/21/2023 Agustin Alvarado PLAN OF TREATMENT No Information
--- OUTSIDE RECORDS SUMMARY | 2024-10-27 12:23 | XMS_ITS ---
Author Organization [facility] Address [address] [place] [address] Care Team Providers Care Heater Mechanic Name Role Phone Jerrell Lo MD Primary Care Provider Unavailab Jose Guadalupe Handley Unavailable [phone] REASON FOR VISIT cx 05/25/23 FLOOR PLAN ADJUSTER appt Encounters Encounter Location Date Provider Diagnosis [facility] [address] [place] [address] 05/03/2023 Jose Guadalupe Mendoza Plan Of Treatment No Information Progress Notes * Tre DUBOSE JrDOB:1954 (67 yo M)Acc No.[id number]:05/03/2023 Patient:?Tre Dubose :1955???Age:67 Y???Sex:Male Address:[address] [place] [address] * true * Date:? Generated for Printi ng/Faxing/eTransmitting on:?10/27/2024 12:23 PM EST
--- OUTSIDE RECORDS SUMMARY | 2024-10-27 12:23 | XMS_ITS ---
Author Organization [facility] Address [address] [place] [address] Care Team Providers Care Bias Binding Cutter Name Role Phone Wally THOMAS, Jerrell Primary Care Provider UnavailAgustin Álvarez Unavailable [phone] ALLERGIES No Known Allergies REASON FOR VISIT Patient presents today for a COLONOSCOPY MEDICATIONS Medication SIG (Take, Route, Frequency, Duration) Notes Start Date End Date Status Aspirin Adult Low Dose 81 MG 1 tablet Or ally Once a day for 30 day(s) Active levETIRAcetam 500 MG TAKE 1 TABLET BY MO UTH TWICE DAILY DIRECTED Oral for 90 Active Omeprazole 40 MG TAKE 1 CAPSULE BY MO UTH EVERY DAY AT 5 PM Oral for 90 Active Doxazosin Mesylate 8 MG TAKE 1 TABLET BY MOUTH EVERY MORNING Oral for 90 Active Centrum Silver - as directed Orally Active Metoprolol Succinate ER 25 MG TAKE 1 TABLET BY MOUTH EVERY DAY Oral for 90 Active SOCIAL HISTORY Tobacco Use: Social History Observation Description Date Details (start date - stop date) Former Smoker NA - NA Sex Assigned At : Social History Observation Description Sex Assigned At Unknown Tobacco Use/Smoking Question Answer Notes Patient is a former smoker How long has it been since you last smoked? 6-12 months Alcohol Screen Question Answer Notes Did you have a drink containing alcohol in the p ast year? No Points 0 Interpretation Negative PROBLEMS Problem Type ICD Code Onset Dates Problem Status W/U Status Risk SNOMED Code Notes Problem Gastroesophageal reflux disease, unspecified whether esophagitis present (K21.9) Active confirmed 967181272 Problem Colon cancer screening (Z12.11) Active confirmed 189884142 VITAL SIGNS BMI 22.39 kg/m2 06/01/2023 Blood pressure systolic 00 mm Hg 06/01/20 23 Blood pressure diastolic 00 mm Hg 023 Height 5 ft 7 in in 06/01/2023 Temperature 98.5 degrees Fahrenheit 06/01/20 23 Weight 143 lbs 06/01/2023 Encounters Encounter Location Date Provider Diagnosis [facility] [address] [place] [address] 06/01/2023 Agustin Alvarado Gastroesophageal ref lux disease, unspecified whether esophagitis present K21.9 and Colon cancer screening Z12.11 ASSESSMENTS Encounter Date Diagnosis Assessment Notes Treatment Notes Treatment Clinical Notes 06/01/2023 Gastroesophageal ref lux disease, unspecified whether esophagitis present (ICD-10 - K21.9) 06/01/2023 Colon cancer screeni ng (ICD-10 - Z12.11) Stop aspirin for 1 week before the procedures PLAN OF TREATMENT Treatment Notes Assessment Notes Colon cancer screening Stop aspirin for 1 week before the procedures Future Test Test Name Order Date UPPER GI ENDOSCOPY 06/01/2023 COLONOSCOPY 06/01/2023 Next Appt Details Follow Up: prn, Reason: Progress Notes * Examination Category Sub-Category Detail Notes General Examination GENERAL APPEARANCE: pleasant , well nourished, well developed, in no acute distress HEAD: EYES: sclera non-icteric EARS: NOSE: THROAT: NECK/THYROID: no cervical lymphade nopathy, neck supple HEART: S1, S2 normal CHEST: LUNGS: clear to auscultatio n bilaterally ABDOMEN: normal bowel sounds, no guarding or rigidity, no guarding or rigidity, no masses palpable, soft, nontender, nondistended NEUROLOGIC: alert and oriented SKIN: nonjaundiced, no spi kiko angiomata EXTREMITIES: no edema PERIPHERAL PULSES: BACK: BREASTS: MUSCULOSKELETAL: MALE GENITOURINARY: LYMPH NODES: RECTAL EXAM: FEMALE GENITOURINARY: ORAL CAVITY: mucosa moist
--- OUTSIDE RECORDS SUMMARY | 2024-10-27 12:24 | XMS_ITS | Encounter Summary ---
Author Organization [employer] Address [address] [place] [address] Care Team Providers Care Linen Grader Name Role Phone Unavailable Primary Care Provider Unavailabl e Encounter Details Date Type Department Care Team (Latest Contact Info) Description 06/16/2019 Abstract [facility] CONVERSIONS Dental, Provider, DDS Social History Tobacco Use Types Packs/Day Years Used Date Smoking Tobacco: Never Assessed Sex and Gender Information Value Date Recorded Sex Assigned at Male 07/20/2022 10:23 AM EDT Legal Sex Male 10:23 AM EDT Gender Identity Male 07/20/2022 10:23 AM EDT Sexual Orientation Straight 07/20/2022 10 :23 AM EDT documented as of this encounter Plan of Treatment Not on file documented as of this encounter Visit Diagnoses Not on filedocumented in this encounter
--- OUTSIDE RECORDS SUMMARY | 2024-10-27 12:24 | XMS_ITS | Patient Health Record ---
Author Organization [facility] Address [address] [place] [address] Care Team Providers Care Food Quality Tester Name Role Phone Jerrell Lo MD Primary Care Provider Unavailab Jose Guadalupe Handley Unavailable [phone] Reason For Referral No Information Medications Medication SIG (Take, Route, Frequency, Duration) Notes Start Date End Date Status Flonase Active Famotidine Active Tylenol Active Estradiol 10 MCG 1 tablet Vaginal Two times a Week Active Doxazosin Mesylate 8 MG TAKE 1 TABLET BY MOUTH EVERY MORNING Oral for 30 Days Active Omeprazole 40 MG TAKE 1 CAPSULE BY MO UTH EVERY DAY AT 5 PM Oral for 90 Days Active Metoprolol Succinate ER 25 MG TAKE 1 TABLET BY MOUTH EVERY DAY Oral for 90 Days Active levETIRAcetam 500 MG TAKE 1 TABLET BY MO UTH TWICE DAILY DIRECTED Oral for 90 Days Active Social History Tobacco Use: Social History Observation Description Date Details (start date - stop date) Former Smoker NA - NA Tobacco Use/Smoking Question Answer Notes Are you a: former smoker Additional Findings: Tobacco Non-User Cu rrent non-smoker,Ex-heavy cigarette smoker (20-30/day) Alcohol Screen Question Answer Notes Did you have a drink containing alcohol in the p ast year? No Points 0 Interpretation Negative Plan Of Treatment No Information Insurance Providers Payer Name Payer Address Payer Phone Subscriber Number Group Number Insured Name Patient Relationship to Insured Coverage Start Date Coverage End Date Medicare [facility] [address] [place] [address] [phone] [id number] Tre Villeda Self - patient is the insured AARP Secondary to Medicare [address] [place] [address] [phone] [id number] Tre Villeda Self - patient is the insured Medical (General) History Medical History History ICD Code Chicken pox Hemophilia
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
--- OUTSIDE RECORDS SUMMARY | 2024-10-27 12:24 | XMS_ITS ---
Author Organization [facility] Address [address] [place] [address] Care Team Providers Care Market Research Senior Project Manager Name Role Phone Jerrell Lo MD Primary Care Provider Unavailab Agustin aCrrero Unavailable [phone] REASON FOR VISIT screening,gerd Encounters Encounter Location Date Provider Diagnosis [facility] Outpatient [address] [place], [place] [id number] 09/03/2023 Agustin Alvarado PLAN OF TREATMENT No Information
--- OUTSIDE RECORDS SUMMARY | 2024-10-27 12:24 | XMS_ITS | Clinical Summary ---
Author Organization [employer] Address [address] [place] [address] Care Team Providers Care Plant And Machinery Valuer Name Role Phone Unavailable Primary Care Provider Unavailabl e Social History Tobacco Use Types Packs/Day Years Used Date Smoking Tobacco: Never Assessed Sex and Gender Information Value Date Recorded Sex Assigned at Male 07/20/2022 10:23 AM EDT Legal Sex Male 10:23 AM EDT Gender Identity Male 07/20/2022 10:23 AM EDT Sexual Orientation Straight 07/20/2022 10 :23 AM EDT Plan of Treatment Health Maintenance Due Date Last Done Comments CT Colonography 1955 Colonoscopy 1955 Colorectal Cancer Screening 1955 Depression Screening 1955 FIT DNA/Cologuard 1955 FIT 1955 FOBT 1955 Lipid Panel 1955 Sigmoidoscopy 1956 Alcohol/Substance Use Screening 1968 Tobacco Screening 1968 DTaP/Tdap/Td Vaccines (1 - Tdap) 1975 Pneumococcal Vaccine: 50+ Ye ars (1 of 1 - PCV) 2006 Zoster Vaccines (1 of 2) 2006 COVID-19 Vaccine ( - 2023-2 5 season) 2024 Influenza Vaccine (#1) 2024 RSV Patients and Pa tients Aged 60 years or older (1 - 1-dose 75+ series) 2031 HIB Vaccines Aged Out No longer eligi ble based on patient's age to complete this topic HPV Vaccines Aged Out No longer eligi ble based on patient's age to complete this topic Hepatitis A Vaccines Aged Out No long er eligible based on patient's age to complete this topic Hepatitis B Vaccines Aged Out No long er eligible based on patient's age to complete this topic IPV Vaccines Aged Out No longer eligi ble based on patient's age to complete this topic Meningococcal Vaccine Aged Out No erasmo soumya eligible based on patient's age to complete this topic RSV under 20 months Aged Out No longe r eligible based on patient's age to complete this topic Rotavirus Vaccines Aged Out No longer eligible based on patient's age to complete this topic
--- OUTSIDE RECORDS SUMMARY | 2024-10-27 12:24 | XMS_ITS ---
Author Organization [facility] Address [address] [place] [address] Care Team Providers Care Bus Mechanic Name Role Phone Jerrell Lo MD Primary Care Provider Unavailab Jose Guadalupe Handley Unavailable [phone] Medications Medication SIG (Take, Route, Frequency, Duration) Notes Start Date End Date Status Estradiol 10 MCG 1 tablet Vaginal Two [...] UT TWICE DAILY DIRECTED Oral for 90 Days Active Flonase Active Famotidine Active Tylenol Active Social History Tobacco Use: Social History Observation Description Date Details (start date - stop date) Former Smoker NA - NA Tobacco Use/Smoking Question Answer Notes Are you a: former smoker Additional Findings: Tobacco Non-User Cu rrent non-smoker,Ex-heavy cigarette smoker (20-30/day) Alcohol Screen Question Answer Notes Did you have a drink containing alcohol in the p ast year? No Points 0 Interpretation Negative Vital Signs Height 5'8 in 05/25/2023 Weight 143 lbs 05/25/2023 BMI 21.74 kg/m2 05/25/2023 Encounters Encounter Location Date Provider Diagnosis [facility] [address] [place] [address] 05/25/2023 Jose Guadalupe Mendoza Plan Of Treatment No Information Progress Notes * Tre DUBOSE JrDOB:1954 (69 yo M)Acc No.[id number]:05/25/2023 Progress Notes Patient:?Tre DUBOSE Jr Provider:?Jose Guadalupe Menodza DPM :1955???Age:67 Y???Sex:Male Jason e:05/25/2023 Address: [address] [facility], [facility] Pcp:Jerrell Lo MD Subjective: * Chief Complaints: * ??? * ROS:?General/Constitutional:?Nausea?denies.?Vomiting?admits.?Hunger Thirst?denies.?Loss appetite?denies.?Chills?denies.?Fatigue?denies.?Fever?admits.?Night Sweats?denies.?Unexplained weight loss?denies.?Unexplained weight gain?denies.?HEENTM:?Dentures?denies.?Dizziness?denies.?Glasses/contacts?admits.?Retinopathy?de nies.?Blurred/double vision?denies.?TMJ?denies.?Discharge/drainage?denies.?Implants?denies.?Sore throat?denies.?Dental implants?denies.?Hard of hearing ?denies.?Difficulty chewing/swallowing/speaking?denies.?Nose bleeds?denies.?Sore mouth?denies.?Respiratory:?On Oxygen?denies.?Pneumonia/pleurisy?denies.?Bronchitis?denies.?Emphysema?denies.?C oughing?denies.?Cough blood?denies.?Shortness of breath?denies.?Wheezing?denies.?Cardiovascular:?Pacemaker?denies.?MVP?denies.?WPW?denies.?CHF?denies.?Heart attack?denies.?Septal defect?denies.?Rapid beat?denies.?Chest pain ?denies.?Atrial Fib.?denies.?Murmur/Palpitations?denies.?Gastrointestinal:?Hemorrhoids?admits.?Stomach/Abdominal pain?admits.?Dark blood stool?denies.?Irritable bowel ?denies.?Constipation?denies.?Diarrhea?denies.?Hematology:?Swelling?denies.?Clots?denies.?Varicose Veins?denies.?Bruising?denies.?Bleeding problem?denies.?Genitourinary:?Blood urine?denies.?Frequent/Painfu/urination/bladder control?denies.?Kidney stones?denies.?Infection (UTI)?denies.?Nephropathy?denies.?sex trans dis (STD)?denies.?Prostate?denies.?Musculoskeletal:?Hammertoes?denies.?Bunions?denies.?Back Pain?admits.?Muscle Cramps/ Resting?denies.?Muscle cramps / walking?admits.?Generalized aches and pains?denies.?Weakness?denies.?Integ.:?Vigil?denies.?Scars?denies.?Corns/calluses?denies.?Ingrown nails?denies.?Painful nails?denies.?Open Sores?denies.?Rashes?denies.?Neurologic:?Difficulty sleeping?denies.?Brain disorder?denies.?Numbness?denies.?Balance trouble?denies.?Confusion?denies.?Fainting/blackouts?admits.?Tingling?denies.?Tr emors?denies.? * Medical History:?Chicken pox , Hemophilia. * Family History:?Mother: dece ased.?Father: , diagnosed with Family history of arthritis.? * Social History:?Tobacco Use:?Tobacco Use/Smoking?Are you a:?former smoker ?Additional Findings: Tobacco Non-User?Current non-smoker,Ex-heavy cigarette smoker (20-30/day) ???Drugs/Alcohol:?Drugs?Have you used drugs other than those for medical reasons in the past 12 months??No ?Alcohol Screen?Did you have a drink containing alcohol in the past year??No ?Points?0 ?Interpretation?Negative ???Miscellaneous:?Caffeine: yes, frequency: , 1-2 cups per day. ?Children: no. ?Exercise: no. ?Marital status: single. * Medications:?Taking Flonase , Taking Famotidine , Taking Tylenol , Taking Estradiol 10 MCG Tablet 1 tablet Vaginal Two times a Week , Taking Doxazosin Mesylate 8 MG Tablet TAKE 1 TABLET BY MOUTH EVERY MORNING Oral , Taking Omeprazole 40 MG Capsule Delayed Release TAKE 1 CAPSULE BY MOUTH EVERY DAY AT 5 PM Oral , Taking Metoprolol Succinate ER 25 MG Tablet Extended Release 24 Hour TAKE 1 TABLET BY MOUTH EVERY DAY Oral , Taking levETIRAcetam 500 MG Tablet TAKE 1 TABLET BY MOUTH TWICE DAILY DIRECTED Oral Objective: * Vitals:?Ht: 5'8 , Wt:143, BM I:21.74, Shoe size: 9, Ht-cm: 172.72 cm, Wt-k.86 kg. Assessment: Plan: * Treatment: * Images: * The named appointment provid er may or may not be the originator of this progress note, and it is not deemed complete until electronically signed by the appointment provider. Sign off status: Pending * Provider:?Jose Guadalupe Mendoza DPM Date:?2022 Generated for Tracie paul/Gustavo/Raymond on:?10/27/2024 12:23 PM EST
[2024-10-27 12:42] LABS: Alanine Aminotransferase 15 U/L (0-40); Anion Gap 16 (12-20); Aspartate Amino Transferase 18 U/L (5-37); Blood Urea Nitrogen 11 mg/dL (9-16); Carbon Dioxide 26 mmol/L (22-29); Chloride 105 mmol/L (96-108); Estimated Glomerular Filt Rate > 60; Potassium 5.2 mmol/L (3.3-5.1); Sodium 142 mmol/L (135-145)
== END 2024-10-27 11:23 | disposition home or self-care (01) ==
LOC: HO.LAB 11:22
PROVIDERS: PCP Family Medicine; Visit Provider Family Medicine
DX: I10 Essential (primary) hypertension (principal); R06.02 Shortness of breath; G40.909 Epilepsy, unspecified, not intractable, without status epilepticus
CPT/HCPCS: 36415; 80051; 82565; 84450; 84460; 84520; 85025

== ENCOUNTER 2025-05-18 11:07 | Outpatient (AMB) | payer OTHER, SELFPAY ==
--- NOTE | 2025-05-18 11:35 | A.OFFPC_ITS ---
Vital Signs 05/18/25 11:42 05/18/25 12:09 Height 5 ft 7 in Weight 62.142 kg BMI 21.5 BP 170/94 H 126/78 Respiration 18 Pulse 83 Pulse Source Pulse Oximeter Temp 97.4 F Temp Source Temporal Artery Scan Pulse Oximetry (%) 99 Oxygen Delivery Method Room Air Intake Visit Reasons: 3 MO F/UP - [facility] PT - see comments Object Oriented Programmer Required: No Accompanied by: Self / Same As Patient Allergies No Known Allergies (No Known Allergies*) Allergy (Unverified 05/18/25 11:35) Tobacco use date assessed: 05/18/25 Fall risk assessment: No Falls in past year Last assessed Fall Risk: 05/18/25 Dental Screening Dental Screen Date: 05/18/25 Did you have a dental visit in the last 12 months?: Yes Did you have a dental problem in the last 6 months where you did not have access to dental care?: No Was dental information given to patient?: No HPI HPI Comments History of Present Illness Details 69-year-old male with history of hyperte nsion, GERD, emphysema, gait ataxia, seizure disorder presented to the office today for management of chronic conditions and to establish care. Hypertension-on metoprolol. Initial blood pressure 170/94, 126/78 on recheck GERD-on omeprazole Emphysema-not using any inhalers, no shortness a breath or wheezing. Quit smoking 3 years ago Gait ataxia-ambulating with a cane Seizure disorder-1st seizure in 2017, 2nd 2020, no subsequent seizures. On Keppra BPH-stable on doxazosin Healthy maintenance: Refuses colonoscopy and lung cancer screening but may reconsider Declines AAA screening ROS: General: No fevers, malaise, unintentional weight loss HEENT: No blurred vision, diplopia. No sore throat, nasal congestion, rhinorrhea, sinus pain, ear pain Cardiovascular: No chest pain, palpitations, or leg edema Respiratory: No shortness of breath, wheezing, cough GI: No abdominal pain, nausea, vomiting, diarrhea, constipation, melena, hematochezia : No dysuria, hematuria, increased urinary frequency, decreased urinary output MSK: No myalgia, back pain Neuro: No headaches, weakness, paresthesias Skin: No rashes or lesions EXAM: Constitutional - Awake and Alert, No apparent distress Eyes - PERRL Cardiovascular - S1S2, RRR, No edema Respiratory - Normal lung expansion, Normal respiratory effort, No respiratory distress, CTA bilaterally Extremities - no calf tenderness bilaterally, no swelling Skin - Warm/Dry Neurological - Alert & oriented x3 Psychological - Appropriate affect [facility] Medical History (Updated 05/18/25 @ 12:14 by UY Mckay) Ataxic gait Panlobular emphysema GERD (gastroesophageal reflux disease) Ophthalmoplegia History of traumatic brain injury BPH (benign prostatic hyperplasia) HTN (hypertension) New onset seizure Seizure disorder Social History Household Members: Family Household Members Other:: brother and father Housing: Apartment Do you presently have visiting nurse or other home services: No Alcohol intake: current Patient Tobacco Use Status: Former Tobacco user (Quite in 08/26/2022) e-Cigarette/Vaping Use: Never Used Advance Directives Date on File: 02/12/22 service: No Current occupational status: retired Cognitive needs: Yes (Cane) Hearing needs: No Vision needs: Yes (Rx glasses) Questionnaire PHQ-9 Over the last 2 weeks, how often have you been bothered by any of the following problems? 1. Little interest or pleasure in doing things: not at all 2. Feeling down, depressed, or hopeless: not at all 3. Trouble falling or staying asleep, or sleeping too much: several days 4. Feeling tired or having little energy: several days 5. Poor appetite or overeating: not at all 6. Feeling bad about yourself - or that you are a failure or have let yourself or your family down: not at all 7. Trouble concentrating on things, such as reading the newspaper or watching television: not at all 8. Moving or speaking so slowly that other people could have noticed. Or the opposite - being so fidgety or restless that you have been moving around a lot more than usual: not at all 9. Thoughts that you would be better off or of hurting yourself in some way: not at all Total score: 2 Source: Developed by Drs. Agustin Jones, Yovana Niño, Fabian Dai and colleagues, with an educational lela from [email or web address]. Thrive Questionnaire Date Thrive assessed: 05/18/25 I am a: Patient What is your living situation today?: I have a steady place to live Within the past 12 months, did the food you bought not last and you didn't have the money to get more?: Never true Within the past 12 months, did you worry whether your food would run out before you got money to buy more?: Never true Do you have trouble paying for medicines?: No Do you have trouble getting transportation to medical appointments?: No Do you have trouble paying your heating and electricity bill?: No Do you have trouble taking care of your child, family member or friend?: No Do you have trouble with day-to-day activities such as bathing, preparing meals, shopping, managing finances, etc.?: No Are you currently unemployed and looking for a job?: No Are you interested in more education?: No Please select the resources that you would like help with: None THRIVE Score: 0 EFRAÍN-7 AMB Questionnaire EFRAÍN-7 Date EFRAÍN - 7 assessed: 05/18/25 Feeling nervous, anxious, or on edge: 0 = Not at all Not being able to stop or control worryin = Not at all Worrying too much about different things: 0 = Not at all Trouble relaxin = Not at all Being so restless that it is hard to sit still: 0 = Not at all Becoming easily annoyed or irritable: 0 = Not at all Feeling afraid as if something awful might happen: 0 = Not at all Total EFRAÍN-7 score (0-4 normal; 5-9 mild; 10-14 moderate; 15-21 severe): 0 Source: Developed by Drs. Agustin Jones, Yovana Niño, Fabian Dai and colleagues, with an educational lela from [email or web address]. Physical exam (Primary Care) Vital Signs: Last Vital Signs Temp 97.4 F 05/18/25 11:42 Pulse 83 05/18/25 11:42 Resp 18 05/18/25 11:42 BP 170/94 H 05/18/25 11:42 Pulse Ox 99 05/18/25 11:42 Oxygen Delivery Method Room Air 05/18/25 11:42 BMI result Body Mass Index 21.5 Tobacco/Smoking Status: Tobacco use Status Tobacco use date assessed 05/18/25 05/18/25 11:45 Patient Tobacco Use Status Former Tobacco user (Quite 05/18/25 11:45 in 08/26/2022) Tobacco use type 05/18/25 11:45 e-Cigarette/Vaping Use Never Used 05/18/25 11:45 PHQ-9: PHQ-9 Score PHQ-9: Total score 2 05/18/25 11:47 Thrive Assessment: Date of Thrive Assessment Date Thrive assessed 05/18/25 05/18/25 11:47 Coding Level of Care Code New Pt Level 4 (11455) Complex EM visit Add On G2211 Diagnoses Seizure disorder G40.909 HTN (hypertension) I10 BPH (benign prostatic hyperplasia) N40.0 Panlobular emphysema J43.1 Assessment & Plan Assessment & Plan (1) Seizure disorder: Code(s): G40.909 - Epilepsy, unspecified, not intractable, without status epilepticus Category: Medical Plan: Stable. Continue Keppra (2) HTN (hypertension): Code(s): I10 - Essential (primary) hypertension Category: Medical Plan: Controlled on recheck. Continue metoprolol (3) BPH (benign prostatic hyperplasia): Code(s): N40.0 - Benign prostatic hyperplasia without lower urinary tract symptoms Category: Medical Plan: Stable. Continue doxazosin (4) Panlobular emphysema: Code(s): J43.1 - Panlobular emphysema Category: Medical Plan: Asymptomatic. Monitor symptoms Plan Follow-up in 6 months, labs to be completed prior to visit today. Declines colonoscopy, lung cancer screening, AAA screening. Advised to contact the office should he change his mind. 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 Prostate Specific Antigen Today G40.909 - Epilepsy, unspecified, not intractable, without status epilepticus, 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 Basic Metabolic Panel Today G40.909 - Epilepsy, unspecified, not intractable, without status epilepticus, 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, I10 - Essential (primary) hypertension, J43.1 - Panlobular emphysema, K21.9 - Gastro- esophageal reflux disease without esophagitis, N40.0 - Benign prostatic hyperplasia without lower urinary tract symptoms, R26.0 - Ataxic gait, T81.82XA - Emphysema (subcutaneous) resulting from a procedure, initial encounter, Z87.820 - Personal history of traumatic brain injury Liver Panel Today G40.909 - Epilepsy, unspecified, not intractable, without status epilepticus, 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
[2025-05-18 11:42] VITALS: BP 170/94; PULSE 83; RESP 18; TEMP 36.3; O2SAT 99; BMI 21.5
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
--- OUTSIDE RECORDS SUMMARY | 2025-05-18 11:50 | XMS_ITS | Clinical Summary ---
Author Organization [employer] Address [address] [place] [address] Care Team Providers Care Smoking Pipe Mounter Name Role Phone Unavailable Primary Care Provider [...] Vaccines (1 of 2) 2006 COVID-19 Vaccine (1 - 2023-2 5 season) 2024 Influenza Vaccine (#1) 2025 RSV Patients and Pa tients Aged 60 [...] patient's age to complete this topic Meningococcal B Vaccine Aged Out No l onger eligible based on patient's age to complete [...]
--- OUTSIDE RECORDS SUMMARY | 2025-05-18 11:50 | XMS_ITS | Encounter Summary ---
Author Organization [facility] [facility] Address [address] [place] [address] Care Team Providers Care Elevator Repairer Helper Name Role Phone Unavailable Primary Care Provider Unavailabl e Encounter Details Date Type Department Care Team (Latest Contact Info) Description 06/16/2019 Abstract C CONVERSIONS Dental, Provider, DDS Social History Tobacco [...]
[2025-05-18 12:09] VITALS: BP 126/78
== END 2025-05-18 12:13 | disposition home or self-care (01) ==
LOC: HO.HMCHD 11:07
PROVIDERS: PCP Family Medicine; Visit Provider Physician Assistant
DX: G40.909 Epilepsy, unspecified, not intractable, without status epilepticus (principal); I10 Essential (primary) hypertension; N40.0 Benign prostatic hyperplasia without lower urinary tract symptoms; J43.1 Panlobular emphysema

== ENCOUNTER → 2025-05-18 11:07 | Outpatient (BNVA) | payer OTHER, SELFPAY | PROVIDERS: PCP Family Medicine; Visit Provider Physician Assistant | DX: Z76.89 Persons encountering health services in other specified circumstances (principal); G40.909 Epilepsy, unspecified, not intractable, without status epilepticus; I10 Essential (primary) hypertension; N40.0 Benign prostatic hyperplasia without lower urinary tract symptoms; J43.1 Panlobular emphysema; K21.9 Gastro-esophageal reflux disease without esophagitis; R26.0 Ataxic gait; Z79.899 Other long term (current) drug therapy; Z13.39 Encounter for screening examination for other mental health and behavioral disorders; Z13.30 Encounter for screening examination for mental health and behavioral disorders, unspecified | CPT/HCPCS: 96127; 99202 ==